=== PATIENT | male | born 1945 | race Caucasian/White ===

== ENCOUNTER 2017-03-09 12:14 | Inpatient (IN) | payer MEDICARE ==
[2017-03-09] VITALS (7 sets, daily range): BP systolic 136–176; BP diastolic 66–92
[~2017-03-09] VITALS: Ht 167.6 cm; Wt 89.6 kg
--- NOTE | ~2017-03-09 | CON ---
[place], [place] REPORT OF CONSULTATION NAME: AARON JONES UNIT #: [id number] ROOM: [facility] DOCTOR: BRENNAN PASCAL MD BIRTHDATE: [birth year] DOS: 03/10/2017 HISTORY OF PRESENT ILLNESS: This is a 71-year-old patient who has presented with multiple medical problems, among which has been severe anemia with H and H of 10 and 31, which subsequently was reassessed, has dropped to 7 and 21 and elevated troponin, dark stool. It subsequently was assessed and was guaiac negative. His latest H and H was reassessed and transfusion of 2 units of packed cell has been prescribed. His lactic acid was 3.7. His INR 1.1. No abdominal pain complaint. Some diarrhea has been reported. C. diff was negative based on assessment. Lactic acid latest was 3.6 on 03/09 yesterday late midnight. PAST MEDICAL HISTORY: Associated with chest pain, diabetes mellitus, hypertension, and presentation with shortness of breath as well the chest pain. The patient was admitted to ICU and being managed. Also associated psoriatic arthritis, hypothyroidism as well. PAST SURGICAL HISTORY: Carpal tunnel liver biopsy. SOCIAL HISTORY: Past alcohol consumer. Past smoker. FAMILY HISTORY: Noncontributory. ALLERGIES: No known medication. REVIEW OF SYSTEMS: HEENT: Denies double vision, blurred vision. RESPIRATORY: Denies acute shortness of breath. CARDIOVASCULAR: Denies acute chest pain. DIGESTIVE SYSTEM: Complained of black stools. No hematemesis, however. PHYSICAL EXAMINATION: VITAL SIGNS: Stable. HEENT: Head normocephalic, nontraumatic. Eyes: Pupils round, reactive. Sclerae nonicteric. Conjunctivae pink. NECK: Supple, no thyromegaly, no cervical lymphadenopathy. CHEST: Symmetric anatomy, equal expansion. No wheeze, no rhonchi. The patient anteroposteriorly has scattered wheezes. HEART: Normal sinus rhythm, no gallop, no murmur. ABDOMEN: Soft. No hepato-organomegaly. Bowel sounds present. No pulsatile mass. No rebound effect. EXTREMITIES: No cyanosis, no pedal edema. NEUROLOGIC: Alert, oriented to time, place, person. IMPRESSION: Severe anemia, drop in hemoglobin and hematocrit, elevated troponin, chest pain, coronary artery disease in picture, concerns about renal insufficiency. PLAN AND DISCUSSION: Due to the complexity of the problem this gentleman has, we are going to keep him on Protonix. He has apparently been assessed by [place], [place] REPORT OF CONSULTATION NAME: AARON JONES UNIT #: [id number] ROOM: [facility] DOCTOR: NAIDA GARCIA,BRENNAN BIRTHDATE: [birth year] Cardiology since his troponin is progressively worsening. He has perhaps an impending myocardial infarction. As far as the presentation of drop in H and H is concerned, he is not on antiplatelets. He is denying any other pain medication to be responsible i.e., nonsteroidal anti-inflammatories. His colonoscopy has been about a year plus ago. I remain concerned about his lactic acid been elevated also, but however, he has renal insufficiency and recommending lactic acid to be reviewed again in the office now that he is bleeding. If there would be a progressive elevation, then a CTA of the abdomen would be recommended. BRENNAN PASCAL MD CM:CONSTR:REPORT OF CONSULTATION 1422 03/11/17 0430 interface
--- NOTE | ~2017-03-09 | EKG ---
[place], [place] ELECTROCARDIOGRAM REPORT NAME: AARON JONES UNIT #: [id number] ROOM: [facility] DOCTOR: SHARAD GARCIA,LOBO BIRTHDATE: [birth year] DOS: 03/09/2017 TIME: 2123 hours. IMPRESSION: 1. Sinus tachycardia. 2. Anterolateral infarction, age undetermined. 3. Inferior infarction, age undetermined. LOBO OROURKE MD CM:EKGRPT:ELECTROCARDIOGRAM REPORT [id number] LOBO OROURKE MD
--- NOTE | ~2017-03-09 | CON ---
[place], [place] REPORT OF CONSULTATION NAME: AARON JONES UNIT #: [id number] ROOM: [facility] DOCTOR: LESLY GARCIALEONARDCHERIE BIRTHDATE: [birth year] DOS: CRITICAL CARE NOTE REQUESTING PHYSICIAN: Dr. Estrada. REASON FOR CONSULTATION: Shortness of breath, chest pain and rising troponin. ASSESSMENT: 1. Current presentation for severe shortness of breath, dyspnea on exertion, and significant drop in functional capacity. 2. Chest pain ____ pressure or tightness, has been going on for the past 2 weeks. It got worse yesterday. 3. Occasional symptomatic palpitation. 4. Significantly elevated troponin. 5. Severe anemia after rising troponin. 6. Chronic renal failure. 7. Diabetes/hypertension/hyperlipidemia. 8. Obesity with high probability of obstructive sleep apnea. 9. Heavy previous tobacco abuse (the patient used to smoke 4 packs a day). PLAN: 1. Continue to cycle cardiac enzymes. 2. Initiate Toprol-XL 50 mg twice a day. 3. Imdur 60 mg 1 tab p.o. every day. 4. Lipitor 80 mg once a day. 5. Hold heparin and aspirin for now. 6. Proceed with an echocardiogram on an urgent basis. 7. Transfer the patient to [facility] in [place]. 8. Consider sleep study as an outpatient. 9. I will hold on Aldactone and CHANTEL inhibitor for now given the patient's renal function. HISTORY OF PRESENT ILLNESS: The patient is a pleasant 71-year-old gentleman, unknown to our practice, who [facility] after been complaining of significant shortness of breath, dyspnea on exertion that appeared to be quite acute to the patient. On further questioning, ____ that the patient has been having some ____ heaviness, tightness for the past 2 weeks, significant episode was about 2 weeks ago. On presentation, the patient was found out to have evidence of a completed inferior [place] with anterolateral [place] in progress with ST elevation consistent with a possible aneurysm. The patient continued to have chest pain off and on, was placed on medication with improvement. After starting the heparin, there is significant drop in hemoglobin and for that it was stopped. The patient gives history of shortness of breath, dyspnea on exertion for the past year to year and a half, which [facility]. He had a single episode of syncope in December, which was not apparently fully investigated. No fever, no chills, no night sweats. No abdominal pain, no bright blood per rectum. No PND, orthopnea or pedal edema. Occasional symptomatic palpitation. The patient maintains good appetite, no weight loss. [place], [place] REPORT OF CONSULTATION NAME: AARON JONES UNIT #: [id number] ROOM: [facility] DOCTOR: RENEE GRACE MD BIRTHDATE: [birth year] PAST MEDICAL HISTORY: As detailed in my assessment. SOCIAL HISTORY: The patient quit smoking 4 packs a day about 30 years ago. He used to be also heavy alcoholic, but ____ managed to stop. FAMILY HISTORY: There is no early family history of heart disease. His brother 11 years older than him without any heart problems. CURRENT MEDICATIONS: Protonix, Ativan, insulin, morphine, Dulcolax, [place], Tylenol, Rocephin and Zithromax. ALLERGIES: The patient has no known drug allergies. REVIEW OF SYSTEMS: Currently, the patient denies any headache, diplopia or blurry vision. No fever, no chills, no night sweats. No abdominal pain, no bright red blood per rectum or tarry stools. Admits to joint pain but no muscular pain. No anxiety, no depression, no polyuria, no polydipsia, no skin rash. Review of the systems has been negative. PHYSICAL EXAMINATION: GENERAL: The patient alert and oriented x 3, quite pleasant. The patient is completely flat in bed, does not appear in distress. VITAL SIGNS: Blood pressure 130/59, heart rate 92, respiratory rate of 16, temperature 97.6. HEENT: Extraocular muscle intact. Pupils equal, round, reactive to light. Conjunctivae significant pallor. Throat: No petechiae. NECK: Good upstroke. Bruits could be heard over both carotids. HEART: S1, S2 with holosystolic murmur in the left upper sternal border. No rub or sternal heave. CHEST AND BACK: Not examined. LUNGS: Decreased air movement with rhonchi could be heard at the base bilateral. ABDOMEN: Obese, soft, nontender, present bowel sounds, no masses, no bruits. LOWER EXTREMITIES: There is no significant edema with faint distal pulses. NEUROLOGIC: Grossly nonfocal. SKIN: No significant rash. LABORATORY DATA: White count 8.3, initially 16.2; hemoglobin initially 10.1 and currently 6.4. Potassium 4.0, creatinine 1.4, BUN 53, glucose 293, GFR 49. Hemoglobin A1c is 8.4. Triglyceride 217, LDL is 62, HDL 24. TSH 1.5, T4 is 1.1. Troponin rising from 0.497-2.1 and subsequently 3. Failure to intervene will result in serious outcome on the patient's life. [place], [place] REPORT OF CONSULTATION NAME: AARON JONES UNIT #: [id number] ROOM: [facility] DOCTOR: RENEE GRACE MD BIRTHDATE: [birth year] RENEE GRACE MD CM:CONSTR:REPORT OF CONSULTATION 0939 03/13/17 1106 interface
[2017-03-09 12:33] LABS: BASO # 0.1 10*3/uL (0.0-0.1); BASO % 0.4 % (0.0-1.0); EOS % 0.1 % (1.0-4.0); HEMATOCRIT 31.3 % (42.0-52.0); HEMOGLOBIN 10.1 g/dl (14.0-18.0); LYMPH # 1.4 10*3/uL (1.3-4.4); LYMPH % 8.8 % (27.0-41.0); MEAN CELL VOLUME 89.7 fl (80.0-94.0); MEAN CORPUSCULAR HGB 28.9 pg (27.0-31.0); MEAN CORPUSCULAR HGB CONC 32.3 g/dl (33.0-37.0); MEAN PLATELET VOLUME 9.3 fl (9.6-12.3); MONO # 0.4 10*3/uL (0.1-1.0); MONO % 2.6 % (3.0-9.0); NEUT # 14.1 10*3/uL (2.3-7.9); PLATELET COUNT AUTOMATED 582 10*3/uL (130-400); RED BLOOD COUNT 3.49 10*6/uL (4.50-5.90); RED CELL DISTRI WIDTH 13.8 % (0-14.5); WHITE BLOOD COUNT 16.2 10*3/uL (4.8-10.8)
--- NOTE | 2017-03-09 12:42 | NUR ---
[place] 4.3 DR BRADSHAW NOTIFIED
[2017-03-09 12:46] LABS: ACT PARTIAL THROMBO TIME 25.5 SECONDS (20.8-31.5); INTERNATIONAL NORM RATIO 1.1 (2.0-3.5)
[2017-03-09 12:52] LABS: ALBUMIN 2.5 gm/dl (3.1-4.5); ALKALINE PHOSPHATASE 70 U/L (45-117); BUN 48 mg/dl (7-24); CHLORIDE 97 mmol/L (98-107); CREATININE 1.53 mg/dL (0.70-1.30); POTASSIUM 4.9 mmol/L (3.5-5.1); SGOT/AST 11 IU/L (3-35); SGPT/ALT 17 U/L (12-78); SODIUM 132 mmol/L (136-145); TOTAL PROTEIN 6.8 gm/dL (6.4-8.2); TROPONIN I < 0.015 ng/ml (<0.045)
--- NOTE | 2017-03-09 13:19 | NUR ---
PT UP TO THE BATHROOM INDEPENDENTLY. HE TOLD ME THAT HE IS BLEEDING FROM THE "INSIDE". THERE WAS A SMALL AMOUNT OF DARK SABINE COLORED MATERIAL IN THE COMMODE. PT REMAINS AWAKE AND ALERT WITHOUT SIGNS OF DISTRESS. ELSY CERVANTES
--- NOTE | 2017-03-09 13:58 | NUR ---
ROOM ASSIGNED 402/2, AWAITING OPPORTU ERIC TO CALL NURSE REPORT TO [facility].
--- NOTE | 2017-03-09 14:04 | NUR ---
SOLU MEDROL IV STOP TIME IS NOW.
--- NOTE | 2017-03-09 14:20 | NUR ---
LORENZO STOP TIME IS NOW.
--- NOTE | 2017-03-09 14:50 | NUR ---
A 71, admitted to , under the services of HERIBERTO Butts DO with a diagnosis of PNEUMONITIS. Chief complaint is CHEST PAIN AND SHORTNESS OF BREATH. Patient arrived via stretcher from ER. Monitor applied. Initial assessment completed. Vital signs taken and recorded. HERIBERTO BUTTS DO notified of admission to the unit. Orders received. See assessment for past medical history, medications and allergies. Patient and/or family oriented to unit. [address] visitation policy reviewed. Clothing/patient valuable form completed. ALEK DANIELS
--- NOTE | 2017-03-09 15:19 | NUR ---
DR PATEL NOTIFIED OF CRITICAL LACTIC ACID OF 3.7
--- NOTE | 2017-03-09 16:10 | NUR ---
[facility] PT STATES HE IS UNSURE WHAT HE TAKES. MEDICATION LIST REQUEST FORM AND PATIENT INFO RELAESE FORM FAXED TO [place]. [phone] WILL A[address] RETURN FAX. DR FERREIRA NOTIFIED.
--- NOTE | 2017-03-09 16:25 | NUR ---
DR SPENCER ANSWERING SERVICE NOTIFIED OF CONSULT.
--- NOTE | 2017-03-09 16:35 | NUR ---
DR SPENCER CALLED UNIT RE: CONSULT. ORDERS TO KEEP PT MONITORED.
--- NOTE | 2017-03-09 16:36 | NUR ---
DR PASCAL CALLED RE CONSULT. NEW ORDERS RECEIVED.
--- NOTE | 2017-03-09 18:41 | NUR ---
DR FERREIRA NOTIFIED OF LACTIC ACID OF 3.6
--- NOTE | 2017-03-09 21:20 | NUR ---
BLOOD SUGAR CRITICALLY HIGH; STAT REFLEX GLUCOSE ORDERED.
--- NOTE | 2017-03-09 21:43 | NUR ---
TWITCHELL OPERATOR BROUGHT STRIPS SHOWING T WAVE CHANGES AFTER PT REPORTED "HAVING A HARD TIME BREATHING AND CHEST PAIN." DR. CALLE NOTIFIED. ALSO INFORMED PER REQUEST. NEW ORDERS RECIEVED. SEE JUN. PTs BEDSIDE FOR EVALUATION.
--- NOTE | 2017-03-09 22:12 | NUR ---
PT REQUESTED MEDICATION FOR ANXIETY. PRN ONE TIME DOSE OF ATIVAN GIVEN.
--- NOTE | 2017-03-09 22:42 | NUR ---
PER PT, PRN ATIVAN WAS EFFECTIVE FOR ANXIETY. PT IS IN BED, RESTING COMFORTABLY. WILL CONTINUE TO MONITOR.
[2017-03-10] VITALS: BP 150/50
--- NOTE | 2017-03-10 00:04 | NUR ---
DR. CALLE NOTIFIED OF CRITICAL GLUCOSE REFLEX OF 499.
--- NOTE | 2017-03-10 00:26 | NUR ---
[facility]
--- NOTE | 2017-03-10 00:33 | NUR ---
NOTIFIED OF ELEVEATED TROPONINS PER .
--- NOTE | 2017-03-10 03:43 | NUR ---
CALLED DR. Janay DAWN WITH ELEVATED TROPONIN RESULT. STATED TO CALL DR. GRACE & THAT THE PATIENT WOULD PROBABLY BE PUT ON A HEPARIN GTT & TRANSFERRED TO THE UNIT.
--- NOTE | 2017-03-10 03:43 | NUR ---
LAB CALLED WITH ELEVATED TROPONIN OF 2.140.
[2017-03-10 04:00] VITALS: BP 164/54
--- NOTE | 2017-03-10 04:49 | NUR ---
DR. PASCAL CALLED DUE TO ORDER OF HEPARIN DRIP AND HAVING AN EGD SCHEDULED THIS AM. ORDERED TO CANCEL TEST.
[2017-03-10 05:30] VITALS: BP 171/73
--- NOTE | 2017-03-10 05:30 | NUR ---
PT TRANSFERRED TO ICU WITH NO INCIDENTS. PT TOLERATED WELL.
--- NOTE | 2017-03-10 05:30 | NUR ---
PT ARRIVED VIA BED FROM [facility]. VSS. PT DENIES CHEST PAIN. SKIN W/D. SEE PI SCREEN FOR VS.
[2017-03-10 05:44] LABS: CREATININE 1.42 mg/dL (0.70-1.30)
--- NOTE | 2017-03-10 05:45 | NUR ---
PATIENT DENIES ANY CHEST PAIN AT THIS TIME, PATIENT STATED HE NEVER REALLY HAD PAIN IT WAS PRESSURE ON ADMISSION. WILL CONTINUE TO MONITOR.
[2017-03-10 05:52] LABS: FREE T4 1.1 ng/dl (0.76-1.46); THYROID STIM HORMONE (HS) 1.54 uIU/ml (0.358-4.75)
[2017-03-10 06:39] LABS: BASO % 0.2 % (0.0-1.0); EOS % 0.1 % (1.0-4.0); LYMPH # 2.1 10*3/uL (1.3-4.4); LYMPH % 25.6 % (27.0-41.0); MEAN CELL VOLUME 88.6 fl (80.0-94.0); MEAN CORPUSCULAR HGB 29.3 pg (27.0-31.0); MEAN PLATELET VOLUME 9.8 fl (9.6-12.3); MONO # 0.5 10*3/uL (0.1-1.0); MONO % 6.2 % (3.0-9.0); NEUT # 5.5 10*3/uL (2.3-7.9); NEUT % 67.2 % (47.0-73.0); RED BLOOD COUNT 2.46 10*6/uL (4.50-5.90); RED CELL DISTRI WIDTH 13.6 % (0-14.5); WHITE BLOOD COUNT 8.3 10*3/uL (4.8-10.8)
[2017-03-10 07:11] LABS: HEMATOCRIT 21.8 % (42.0-52.0); HEMOGLOBIN 7.2 g/dl (14.0-18.0); PLATELET COUNT AUTOMATED 362 10*3/uL (130-400)
[2017-03-10 08:00] VITALS: BP 130/59
[2017-03-10 08:00] LABS: VITAMIN D, 25-HYDROXY 13.4 ng/mL (30-100)
[2017-03-10 08:54] LABS: HEMATOCRIT 20.3 % (42.0-52.0); HEMOGLOBIN 6.4 g/dl (14.0-18.0)
[2017-03-10 08:55] LABS: INTERNATIONAL NORM RATIO 1.1 (2.0-3.5)
--- NOTE | 2017-03-10 09:10 | NUR ---
Dr. Marie notified of critical result troponin .
--- NOTE | 2017-03-10 09:24 | NUR ---
On AM assessment , noted to have significant Hgb drop. lab repeated. w/ continued drop in Hgb. Heparin gtt to off. John Velasco, and Fernando /Cynthia in and aware. up to [facility] to tarry black stool . Pt. denied any HX of PUD. Transfusion permit obtained . Transfer pending for heart cath. NPO at this time.
[2017-03-10 12:25] LABS: HEMATOCRIT 22.9 % (42.0-52.0); HEMOGLOBIN 7.7 g/dl (14.0-18.0)
--- NOTE | 2017-03-10 12:38 | NUR ---
Medicated for c/o headache. Family in awaiting lab results. pending transfer.
[2017-03-10 12:48] VITALS: BP 134/62
--- NOTE | 2017-03-10 13:03 | NUR ---
Report was called to [place] at [facility] . #2 Unit PRBC's up to infuse.
--- NOTE | 2017-03-10 14:04 | NUR ---
Urine output at [address] hamilton aware requested bladder scan and straight cath if needed. Bladder scan revealed 152 cc. .
--- NOTE | 2017-03-10 15:00 | NUR ---
Ambulance crew here to transport pt. Stable on departure. #2 Unit PRBC's continue to transfuse on departure. [facility] and brother Chencho notified of departure.
== END 2017-03-10 15:00 | disposition short-term general hospital (02) | DRG 280 ==
LOC: ED 12:14 → EDHOLD 13:52 → 4E 13:52 → ICCU 03-10 05:09
PROVIDERS: Internal Medicine; Student in an Organized Health Care Education/Training Program; ADMIT Emergency Medicine
PROC: 30233N1 Transfusion of Nonautologous Red Blood Cells into Peripheral Vein, Percutaneous Approach (ICD-10-PCS; principal; 2017-03-10)
DX: I21.4 Non-ST elevation (NSTEMI) myocardial infarction (principal); J18.9 Pneumonia, unspecified organism; N17.0 Acute kidney failure with tubular necrosis; E43 Unspecified severe protein-calorie malnutrition; E11.65 Type 2 diabetes mellitus with hyperglycemia; D68.59 Other primary thrombophilia; E87.1 Hypo-osmolality and hyponatremia; E87.2 Acidosis; K62.5 Hemorrhage of anus and rectum; J98.01 Acute bronchospasm; I25.10 Atherosclerotic heart disease of native coronary artery without angina pectoris; E87.8 Other disorders of electrolyte and fluid balance, not elsewhere classified; D64.9 Anemia, unspecified; D72.829 Elevated white blood cell count, unspecified; I10 Essential (primary) hypertension; E78.5 Hyperlipidemia, unspecified; E03.9 Hypothyroidism, unspecified; L40.50 Arthropathic psoriasis, unspecified; Z87.891 Personal history of nicotine dependence; Z68.31 Body mass index [BMI] 31.0-31.9, adult; Z79.4 Long term (current) use of insulin